=== PATIENT | female | born 1995 | race Caucasian/White ===

== ENCOUNTER 2021-07-16 15:50 | Emergency (ER) | payer OTHER, MEDICAID ==
[~2021-07-16] VITALS: Ht 167.6 cm; Wt 118.2 kg
[2021-07-16 16:15] VITALS: BP 144/102
== END 2021-07-16 19:04 | disposition home or self-care (01) ==
LOC: ER 15:51
DX: R50.9 Fever, unspecified (principal); Z20.822 Contact with and (suspected) exposure to COVID-19; R06.02 Shortness of breath; R05.9 Cough, unspecified
CPT/HCPCS: 71045; 87635; 99284; C9803